=== PATIENT | male | born 1990 | race Caucasian/White ===

== ENCOUNTER 2018-09-28 06:42 | Emergency (ER) | payer OTHER ==
[~2018-09-28] VITALS: Ht 172.7 cm; Wt 93.0 kg
[2018-09-28] MEDS ORDERED: ALLEGRA-D 12 H1 EAC1 PO (06:51)
[2018-09-28] MEDS ORDERED: FLEXERIL PO (07:30)
[2018-09-28] MEDS ORDERED: ULTRAM 50MG TAB50 MG PO (07:30)
[2018-09-28] MEDS ORDERED: PREDNISONE 20 M20 M1 PO (07:30)
[2018-09-28 07:55] VITALS: BP 108/65
== END 2018-09-28 07:56 | disposition home or self-care (01) ==
LOC: M.ERS 06:42
DX: S39.012A Strain of muscle, fascia and tendon of lower back, initial encounter (principal); Z88.0 Allergy status to penicillin; X58.XXXA Exposure to other specified factors, initial encounter; Y93.89 Activity, other specified; Y92.89 Other specified places as the place of occurrence of the external cause; Y99.8 Other external cause status